=== PATIENT | female | born 1970 | race Caucasian/White ===

== ENCOUNTER 2018-03-27 06:14 | Emergency (ER) | payer MEDICAID ==
[~2018-03-27] VITALS: Ht 162.6 cm; Wt 54.4 kg
[2018-03-27] MEDS ORDERED: LORA-259 PO (06:41)
[2018-03-27] MEDS ORDERED: BUTA1CAP49 PO (06:42)
[2018-03-27] MEDS ORDERED: OMEPRAZOLE CAP 20MG (06:42)
[2018-03-27] MEDS ORDERED: TRIAMCINOLONE 0.5% (06:42)
[2018-03-27] MEDS ORDERED: ACETAMINOPHEN-COD #3 TABLET (06:45)
[2018-03-27] MEDS ORDERED: METH500T6 PO (06:45)
[2018-03-27] MEDS ORDERED: FLEXIRIL PO (06:45)
[2018-03-27] MEDS ORDERED: DIPH25CA83 PO (06:45)
--- NOTE | 2018-03-27 06:48 | NUR ---
Patient arrived to bed in stable condition, no visible distress noted at this time. Patient currently awaiting ER MD evaluation of her chief complaint. VSS
--- NOTE | 2018-03-27 06:52 | NUR ---
FATEMEH DEJESUS at bedside for patient evaluation.
[2018-03-27 07:13] LABS: BASOPHILS % (AUTO) 0.8 % (0.0-2.0); EOSINOPHILS # (AUTO) 0.1 K/uL (0.0-0.7); EOSINOPHILS % (AUTO) 1.4 % (0.0-7.0); HEMOGLOBIN 13.3 g/dL (10.9-14.3); LYMPHOCYTES # (AUTO) 1.8 K/uL (20.0-40.0); LYMPHOCYTES % (AUTO) 37.4 % (20.5-51.5); MEAN CORPUSCULAR HEMOGLOBIN 32.3 uug (24.7-32.8); MEAN CORPUSCULAR HGB CONC 34 g/dL (32.3-35.6); MEAN CORPUSCULAR VOLUME 94.7 fL (75.5-95.3); MONOCYTES # (AUTO) 0.4 K/uL (2.0-10.0); MONOCYTES % (AUTO) 8.1 % (0.0-11.0); NEUTROPHILS # (AUTO) 2.5 K/uL (1.8-8.9); NEUTROPHILS % (AUTO) 52.3 % (38.5-71.5); PLATELET COUNT (AUTO) 250 K/uL (179-408); RED BLOOD CELL COUNT(AUTO) 4.12 MIL/uL (3.63-4.92); WHITE BLOOD COUNT (AUTO) 4.8 K/uL (3.8-11.8)
--- NOTE | 2018-03-27 07:16 | NUR ---
Report given to Manjit RAI
[2018-03-27 07:17] LABS: *BILIRUBIN,URIN NEGATIVE (NEGATIVE); *BLOOD, URINE 1+ (NEGATIVE); *CLARITY,URINE CLEAR (CLEAR); *COLOR,URINE YELLOW (YELLOW); *KETONES,URINE NEGATIVE (NEGATIVE); *PROTEIN,URINE NEGATIVE (NEGATIVE); *UROBILINOGEN,URINE 0.2 E.U./dl (NORMAL); LEUKOCYTE ESTERASE ,URINE NEGATIVE (NEGATIVE); NITRITE, URINE NEGATIVE (NEGATIVE); PH,URINE 7.5 (5.0-8.0); UGLUCOSE NEGATIVE (NEGATIVE)
[2018-03-27 07:23] LABS: CREATININE 0.7 mg/dL (0.6-1.3); POTASSIUM 3.5 mmol/L (3.5-5.1)
[2018-03-27 07:25] LABS: *URINE HCG, QUAL NEGATIVE (NEGATIVE)
[2018-03-27 07:27] LABS: BACTERIA,URINE NONE SEEN /HPF (NONE SEEN); SQUAMOUS EPITHELIAL CELL,UR FEW /HPF (NONE SEEN); WBC,URINE 0-3 /HPF (0-3)
[2018-03-27 07:36] LABS: BILIRUBIN,DIRECT 0.1 mg/dL (0.0-0.2); BILIRUBIN,TOTAL 0.6 mg/dL (0.2-1.0); TOTAL PROTEIN, SERUM 7.9 g/dL (6.4-8.2)
--- NOTE | 2018-03-27 08:47 | NUR ---
PT WAS EVALUATED BY DR CUMMINS. PT WAS D/C TO HOME. D/C INSTRUCTIONS GIVEN TO THE PT.
[2018-03-27 08:48] VITALS: BP 129/77
== END 2018-03-27 08:49 | disposition home or self-care (01) ==
LOC: ER 06:26
DX: R10.31 Right lower quadrant pain (principal); N20.0 Calculus of kidney; K21.9 Gastro-esophageal reflux disease without esophagitis
CPT/HCPCS: 36415; 74176; 80048; 80076; 81001; 83690; 84702; 84703; 85025; 99285; A4663